=== PATIENT | female | born 1950 | race American Indian/Alaskan Native ===

== ENCOUNTER 2017-09-01 11:47 | Emergency (ER) | payer BC ==
[2017-09-01 12:20] VITALS: BP 129/86
--- NOTE | 2017-09-01 13:04 | Emergency Department Report ---
Upper Extremity - HPI Chief Complaint: Pain General Stated Complaint: LEFT SHOULDER PAIN Time Seen by Provider: 09/01/17 13:03 Upper Extremity: Left Shoulder Occurred When: 2 Days Mechanism: Unsure Severity: moderate Symptoms: Yes Pain with Movement, No Deformity, No Limited Range of Movement, No Numbness, No Weakness, No Swelling, No Bruising/Ecchymosis, No Laceration or Abrasion Other History: This is a 67-year-old -Stateless female who presents with left trapezius pain radiating to left shoulder. Patient reports using cold and hot compresses with no improvement of symptoms. She went and saw her primary care doctor Jeremy on last and was given Flexeril and meloxicam. Pain is intermittent and achy. It is 10/10 on pain scale and aggravated by movement. Patient reports symptoms are improved with immobility and range of motion exercises. Admits to full range of motion. Denies numbness or tingling , swelling, erythema, chest pain, shortness of breath, and snap or pop sensation was found. ED Review of Systems ROS: Stated complaint: LEFT SHOULDER PAIN Other details as noted in HPI Constitutional: denies: chills, fever Respiratory: denies: cough, shortness of breath, wheezing Cardiovascular: denies: chest pain, palpitations Gastrointestinal: denies: abdominal pain, nausea, diarrhea Musculoskeletal: arthralgia (left shoulder pain). denies: back pain, joint swelling Neurological: denies: headache, weakness, numbness, paresthesias Psychiatric: denies: anxiety, depression ED Past Medical Hx - Past Medical History Previous Medical History?: No - Surgical History Past Surgical History?: No - Social History Smoking Status: Current Every Day Smoker Substance Use Type: Alcohol Upper Extremity Exam - Exam General: Vital signs noted. No distress. Alert and acting appropriately. Head and Torso: Yes Neck Tenderness (left trapezius), No HEENT Abnormality, No Chest/Lungs Abnormality, No Abdominal Tenderness, No Back Tenderness Shoulder Exam: Yes Normal Range of Motion in Shoulder, Yes AC Joint Tenderness, No Shoulder Tenderness, No Clavicle Tenderness, No Shoulder Deformity Arm Exam: No Arm/Humerus Tenderness, No Arm Deformity Elbow: No Elbow Tenderness, No Normal Range of Motion in Elbow, No Elbow Deformity Forearm: No Forearm Tenderness, No Forearm Deformity, No Pain with Pronation, No Pain with Supination Wrist: Yes Normal ROM in Wrist, No Wrist Tenderness, No Wrist Deformity, No Snuffbox Tenderness, No Pain with Axial Thumb Compression Hand: Yes Normal ROM in Digit(s), No Hand Tenderness, No Hand Deformity, No Digit Tenderness, No Digit(s) Deformity, No Tendon Dysfunction CMS Exam: No Broken Skin, No Normal Distal Pulses, No Normal Capillary Refill, No Normal Distal Sensation ED Course Vital Signs 09/01/17 12:16 Temperature 98.9 F Pulse Rate 92 H Blood Pressure 129/86 ED Medical Decision Making - Radiology Data Radiology results: report reviewed EXAM: XR SHOULDER 2+V LT HISTORY: left shoulder pain TECHNIQUE: 3 views of the left shoulder PRIORS: None. FINDINGS: Degenerative arthrosis is present at the AC joint with slight articular surface irregularity and marginal hypertrophy. Degenerative change at the glenohumeral joint is associated with minimal articular surface irregularity. There is slight degenerative cortical remodeling at undersurface of the acromion and the superior margin of the greater tuberosity. No acute fracture or dislocation is evident. IMPRESSION: No acute skeletal pathology Slight degenerative change XR spine cervical Impression: No acute skeletal pathology. Multilevel degenerative disc and joint disease with C5 to C6 moderate disc narrowing. - Medical Decision Making This is a 67 y.o. female presents with neck and left shoulder pain for 2 days. Patient was examined by me. Vitals normal. No acute distress noted. Xray of C -spine and left shoulder obtained and read by radiologist. No acute skeletal pathology Slight degenerative change. XR spine, no acute skeletal pathology. Multilevel degenerative disc and joint disease with C5 to C6 moderate disc narrowing. Patient informed of results. Instructed to continue taken meloxicam and cyclobenzaprine prescribed from Dr. Sebastian, patient's PCP. Plan discussed with patient to discharge home and treat outpatient. She agrees with ER plan. Patient discharged home in stable condition. Follow up with PCP in 2-3 days. Critical care attestation.: If time is entered above; I have spent that time in minutes in the direct care of this critically ill patient, excluding procedure time. ED Disposition Clinical Impression: Degenerative disc disease, cervical Osteoarthritis Qualifiers: Osteoarthritis location: shoulder Osteoarthritis type: primary Laterality: left Qualified Code(s): M19.012 - Primary osteoarthritis, left shoulder Disposition: TO HOME OR SELFCARE Is pt being admited?: No Does the pt Need Aspirin: No Condition: Stable Instructions: Degenerative Disc Disease (ED), Osteoarthritis (ED), Neck Exercises (GEN) Additional Instructions: Rest Use ice or heat on affected area for 20 minutes and off for 2 hours. Take pain medication as needed for pain. Don't drive or operate heavy machinery while taking muscle relaxers because they may cause drowsiness. Follow up with Primary Care Provider in 2-3 days. Referrals: TODD SEBASTIAN MD [Referring] - 3-5 Days Time of Disposition: 14:52 Print Language: DUTCH
--- NOTE | 2017-09-01 14:32 | XRay Report ---
FINAL REPORT EXAM: XR SHOULDER 2+V LT HISTORY: left shoulder pain TECHNIQUE: 3 views of the left shoulder PRIORS: None. FINDINGS: Degenerative arthrosis is present at the AC joint with slight articular surface irregularity and marginal hypertrophy. Degenerative change at the glenohumeral joint is associated with minimal articular surface irregularity. There is slight degenerative cortical remodeling at undersurface of the acromion and the superior margin of the greater tuberosity. No acute fracture or dislocation is evident. IMPRESSION: No acute skeletal pathology Slight degenerative change
--- NOTE | 2017-09-01 14:33 | XRay Report ---
FINAL REPORT EXAM: XR SPINE CERVICAL 2-3V HISTORY: left trapezium tenderness TECHNIQUE: 3 views of the cervical spine PRIORS: None. FINDINGS: Prevertebral soft tissues are without swelling. No evidence of cervical fracture or vertebral compression. Multilevel degenerative changes are present at the vertebral endplates, facet joints, and uncinate joints. Spondylolisthesis is not visualized. C5-6 moderate disc narrowing. IMPRESSION: No acute skeletal pathology Multilevel degenerative disc and joint disease with C5-6 moderate disc narrowing
== END 2017-09-01 15:11 | disposition home or self-care (01) ==
LOC: ED 11:47
DX: M50.30 Other cervical disc degeneration, unspecified cervical region (principal); M19.90 Unspecified osteoarthritis, unspecified site; F17.200 Nicotine dependence, unspecified, uncomplicated
CPT/HCPCS: 72040; 99283